=== PATIENT | female | born 1960 | race African-American/Black ===

== ENCOUNTER 2016-09-03 08:55 | Emergency (ER) | payer BC ==
[~2016-09-03] VITALS: Ht 170.2 cm; Wt 68.9 kg
[~2016-09-03 08:55] MED LIST: glipizide; metformin
[2016-09-03] MEDS ORDERED: HYDROmorphone 2 MG/ML VIAL IV/SQ PRN (09:15)
[2016-09-03] MEDS ORDERED: 0.9 % SODIUM CHLORIDE 10 ML DISP.SYRIN. IV PRN (09:15)
[2016-09-03 09:21] LABS: BILIRUBIN,URINE SMALL (NEG); GLUCOSE,URINE 500 mg/dL (NEG); NITRITE,URINE NEGATIVE (NEG); PROTEIN,URINE 100 mg/dL (NEG-TRACE)
[2016-09-03 09:29] LABS: BASO % 1 % (0-3); EOS % 10 % (0-3); HEMATOCRIT 40.4 % (36.0-47.0); HEMOGLOBIN 13.7 g/dL (12.0-15.5); LYMPH # 1.8 x10^3/uL (1.0-4.8); LYMPH % 32 % (24-48); MEAN CORPUSCULAR HEMOGLOBIN 30 pg (25-35); MEAN CORPUSCULAR HGB CONC 34 g/dL (31-37); MEAN CORPUSCULAR VOLUME 90 fL (79-100); MONO % 8 % (0-9); NEUT % 50 % (31-73); PLATELET COUNT 160 x10^3/uL (140-400); RED CELL DISTRIBUTION WIDTH 12.9 % (11.5-14.5); WHITE BLOOD COUNT 5.6 x10^3/uL (4.0-11.0)
[2016-09-03] MEDS ORDERED: IV NORMAL SALINE 1000ML BAG 1,000 ML IV SCH (09:30)
[2016-09-03] MEDS ORDERED: ONDANSETRON PF 4 MG/2 ML VIAL. IV ONE (09:30)
--- NOTE | 2016-09-03 09:32 | PHYS DOC ---
Past Medical History Past Medical History: Diabetes-Type II Past Surgical History: , Other Additional Past Surgical Histo: left foot surgery Additional Information: 04/29 ppd Alcohol Use: None Drug Use: None Adult General Chief Complaint Chief Complaint: BACK PAIN OR INJURY [facility] HPI Patient is a pleasant 56-year-old female with history of diabetes and hypertension who presents with back pain began 2 weeks ago on the left lower back. She describes as achy and dull and in few days ago she began having a burning sensation and development of an intensely itchy rash over the section of back as well. She's noticed some dark urine without difficulty urinating no UTI symptoms of dysuria urgency or frequency. Patient has had abdominal pain that has been radiating to the left lower abdomen area patient denies any trauma. Patient denies any nausea, vomiting, diarrhea, loose stools or change in bowel habits. Patient denies any prior experiences like this before. There is no numbness and tinea between her legs there is no problems with bowel or bladder incontinence, patient denies any night sweats weight loss or surgical history problems. She admits her pain is worse with movements and direct pressure over the lower back. Review of Systems Review of Systems Constitutional: Denies fever or chills but has had diaphoresis with pain Eyes: Denies change in visual acuity, redness, or eye pain [] HENT: Denies nasal congestion or sore throat [] Respiratory: Denies cough or shortness of breath [] Cardiovascular: No additional information not addressed in HPI [] GI: Denies abdominal pain, nausea, vomiting, bloody stools or diarrhea [] : Denies dysuria or hematuria [] Musculoskeletal: Complains of back pain the lower side on the left without radiation to the leg. Integument: Denies rash or skin lesions [] Neurologic: Denies headache, focal weakness or sensory changes [] Psychologic: Patient feels very anxious with pain.] Current Medications Current Medications Current Medications Medications (Trade) Dose Ordered Sig/Lexie Start Time Stop Time Status Last Admin Dose Admin Hydromorphone HCl (Dilaudid) 1 mg PRN Q15MIN PRN 09/03/16 09:15 09/04/16 09:14 Ondansetron HCl (Zofran) 4 mg 1X ONCE 09/03/16 09:30 09/03/16 09:31 Sodium Chloride (Normal Saline Flush) 10 ml QSHIFT PRN 09/03/16 09:15 Allergies Allergies Allergies Coded Allergies Type Severity Reaction Last Updated Verified codeine Adverse Reaction Intermediate Nausea 10/04/15 Yes hydrocodone Adverse Reaction Intermediate Nausea 10/04/15 Yes Physical Exam Physical Exam Constitutional: Well developed, well nourished, patient uncomfortable nondiaphoretic nontoxic HENT: Normocephalic, atraumatic Eyes: PERRLA, EOMI, conjunctiva normal Neck: Normal range of motion, no tenderness, supple, no stridor. [] Cardiovascular:Heart rate regular rhythm, no murmur [] Lungs & Thorax: Bilateral breath sounds clear to auscultation [] Abdomen: Bowel sounds normal, soft, no tenderness, no masses, no pulsatile masses. [] Skin: Dermatomal rash with vesicles noted over the L1 L2 distribution the left lateral lumbar spine. Patient has no midline tenderness palpation Back: No tenderness, no CVA tenderness. [] Extremities: No tenderness, no cyanosis, no clubbing, ROM intact, no edema. [] Neurologic: Alert and oriented X 3, normal motor function, normal sensory function, no focal deficits noted. No sensation normal strength and DTRs at the knee and ankle. She has full range of motion at the hip knee and ankle. Patient has normal proprioception and gait. Psychologic: Affect normal, judgement normal, mood normal. [] Current Patient Data Vital Signs Vital Signs Date Time Temp Pulse Resp B/P (MAP) Pulse Ox O2 Delivery O2 Flow Rate FiO2 09/03/16 09:05 98.4 88 18 195/98 (130) 98 Room Air 98.4 EKG EKG EKG time 9:19 AM 09/03/[address] Monet demonstrates heart rate normal sinus rhythm 87 movement artifact is noted on the EKG but has no obvious ST segment T-wave changes consistent with acute coronary ischemia versus her event NM interval is normal QRS intervals normal QT is normal. [] Radiology/Procedures Radiology/Procedures [] Course & Med Decision Making Course & Med Decision Making Pertinent Labs and Imaging studies reviewed. (See chart for details) Reviewed nurse's notes and vital signs is noted patient's hypertensive on arrival. Gree with the nurse's notes. Patient presents with back pain and hematuria as well as a rash over her lumbar spine which is indicative of shingles. My concern is given hematuria and abdominal pain that began 2 weeks prior to back pain is at the patient is suffering from either kidney stone or infection radiating from her bladder to her kidneys. Differential diagnosis includes cauda equina, renal cell carcinoma or cancer, AAA, fracture, tumor, miliary TB, infection UTI, pyelonephritis or localized epidural abscess patient will have appropriate CT scan of abdomen and pelvis complete as well as urinalysis given fluids pain meds and reevaluation. [] Dragon Disclaimer Dragon Disclaimer This electronic medical record was generated, in whole or in part, using a voice recognition dictation system. Departure Departure Referrals: NO PCP (PCP) DINO LOPEZ MD September 03, 2016 09:32
[2016-09-03 09:35] LABS: BACTERIA,URINE FEW /HPF (0-FEW); RBC,URINE OCC /HPF (0-2); SQUAMOUS EPITHELIAL CELL,UR FEW /LPF; WBC,URINE OCC /HPF (0-4); YEAST,URINE PRESENT /HPF
[2016-09-03 09:49] LABS: CALCIUM 9.6 mg/dL (8.5-10.1); CREATININE 0.7 mg/dL (0.6-1.0); GFR 105.5; POTASSIUM 4.2 mmol/L (3.5-5.1)
[2016-09-03 09:55] LABS: ALBUMIN 3.2 g/dL (3.4-5.0); ALBUMIN/GLOBULIN RATIO 0.7 (1.0-1.7); TOTAL BILIRUBIN 0.5 mg/dL (0.2-1.0); TOTAL PROTEIN 7.6 g/dL (6.4-8.2)
--- NOTE | 2016-09-03 10:05 | EKG ---
[facility] [address] [place] [address] Test Date: 2016-09-03 Test Time: 09:19:39 Pat Name: LAMIN REYES Department: Room: Gender: F Community Engagement Coordinator: : 1960 Requested By: DINO LOPEZ Order Number: [id number] Reading MD: Kane Glasgow Measurements Intervals Stephenson Rate: 87 P: 39 LA: 134 QRS: -12 QRSD: 84 T: 42 QT: 362 QTc: 436 Interpretive Statements SINUS RHYTHM CANNOT RULE OUT SEPTAL INFARCT Electronically Signed On 09-09-2016 9:05:48 CDT by Kane Glasgow
--- NOTE | 2016-09-03 10:53 | RAD ---
Exam performed: CT scan of the abdomen and pelvis without contrast. Clinical Indication: Left lower quadrant pain for 2 weeks. Date of Service: 09/03/16 . Comparison: None available Technique: Contiguous helical acquisitions are obtained through the abdomen and pelvis without IV contrast. Sagittal and coronal reformatted images are obtained and reviewed. CT abdomen and pelvis findings: The lung bases are essentially clear. Right basilar atelectasis. Visualized heart is normal. Lack of IV contrast limits evaluation of abdominal viscera, however the liver, spleen and pancreas are normal. Cholelithiasis. Both adrenal glands and bilateral kidneys are normal in size without hydronephrosis or nephrolithiasis. No perinephric stranding is seen. Aorta is normal in caliber demonstrating atheromatous calcification without aneurysm. The small and large bowel loops are nondilated and unremarkable. The appendix is not seen. No inflammatory changes seen in the right lower quadrant. Distal ureters are nondilated. Urinary bladder is decompressed and thick walled. There is scattered stool throughout the colon. [Uterus is anteverted. No adnexal masses seen. Numerous phleboliths are seen in the pelvis, which could easily obscure a small posterior. Calculus.] No free or focal fluid collections are identified. Impression: 1. No acute intra-abdominal or pelvic process detected. No evidence of urolithiasis. 2. No convincing evidence of urolithiasis seen. 3. Scattered stool throughout the colon. Correlate clinically for constipation. PQRS Compliance Statement: One or more of the following individualized dose reduction techniques were utilized for this examination: 1. Automated exposure control 2. Adjustment of the mA and/or kV according to patient size 3. Use of iterative reconstruction technique
[2016-09-03 11:00] VITALS: BP 146/75
[2016-09-03] MEDS ORDERED: PRED50TA PO (11:17)
[2016-09-03] MEDS ORDERED: OXYC-323 PO (11:17)
[2016-09-03] MEDS ORDERED: ONDA4TAB10 SL (11:17)
[2016-09-03] MEDS ORDERED: ACYC800T PO (11:17)
[2016-09-03] MEDS ORDERED: CIPR500T94 PO (11:24)
== END 2016-09-03 11:38 | disposition home or self-care (01) ==
LOC: ER 08:55
DX: B02.9 Zoster without complications (principal); I10 Essential (primary) hypertension; N39.0 Urinary tract infection, site not specified; M54.5 Low back pain; E11.9 Type 2 diabetes mellitus without complications; F17.200 Nicotine dependence, unspecified, uncomplicated; Z88.5 Allergy status to narcotic agent
CPT/HCPCS: 36415; 74176; 80053; 81001; 83690; 84484; 85027; 93005; 96361; 96374; 96375; 99285; J1170; J2405; J7030

== ENCOUNTER 2017-02-18 00:12 | Emergency (ER) | payer BC ==
[~2017-02-18] VITALS: Ht 170.2 cm; Wt 65.8 kg
[~2017-02-18 00:12] MED LIST changes: +ACYC800T PO; +CIPR500T94 PO; +ONDA4TAB10 SL; +OXYC-323 PO; +PRED50TA PO
[2017-02-18 00:41] VITALS: BP 165/81
--- NOTE | 2017-02-18 00:52 | PHYS DOC ---
Past Medical History Past Medical History: Diabetes-Type II Past Surgical History: , Other Additional Past Surgical Histo: left foot surgery Additional Information: 1/2 PACK/DAY Alcohol Use: None Drug Use: None Adult General Chief Complaint Chief Complaint: FOOT INJURY PAIN HPI HPI Patient is a 56 year old female with hx of DMII who presents with left hip and left foot pain that begun yesterday after she slipped on concrete and fell walking her dog. Patient denies any LOC. Review of Systems Review of Systems Constitutional: Denies fever or chills [] GI: Denies abdominal pain, nausea, vomiting, bloody stools or diarrhea [] : Denies dysuria or hematuria [] Musculoskeletal: left hip and left foot pain Integument: Denies rash or skin lesions [] Neurologic: Denies headache, focal weakness or sensory changes [] Allergies Allergies Allergies Coded Allergies Type Severity Reaction Last Updated Verified codeine Adverse Reaction Intermediate Nausea 10/04/15 Yes hydrocodone Adverse Reaction Intermediate Nausea 10/04/15 Yes Physical Exam Physical Exam Constitutional: Well developed, well nourished, no acute distress, non-toxic appearance. [] Skin: Warm, dry, no erythema, no rash. [] Back: No tenderness, no CVA tenderness. [] Extremities: No obvious deformity noted on the left lower extremity. Tenderness on palpation of the left lateral hip and the top of the left foot. No navicular bone tenderness or tenderness on the base of the fifth metatarsal of the left foot. Full range of motion to the left lower extremity. +2 left pedal pulse. Cap refill less than 2 seconds the left lower extremity. Sensation intact left lower extremity. Neurologic: Alert and oriented X 3, normal motor function, normal sensory function, no focal deficits noted. [] Psychologic: Affect normal, judgement normal, mood normal. [] Current Patient Data Vital Signs Vital Signs Date Time Temp Pulse Resp B/P (MAP) Pulse Ox O2 Delivery O2 Flow Rate FiO2 02/18/17 00:41 98.1 81 18 96 Room Air 98.1 EKG EKG [] Radiology/Procedures Radiology/Procedures [] Course & Med Decision Making Course & Med Decision Making Pertinent Labs and Imaging studies reviewed. (See chart for details) Patient is in the ED with complaints of left foot pain as well as left hip pain after falling yesterday. Left foot and left hip x-rays including pelvic interpreted by Dr. Willis and negative for any acute findings. Ice elevation encouraged. Discharged with cyclobenzaprine and diclofenac. Follow-up with PCP in 1-2 weeks. Korin Disclaimer Korin Disclaimer This electronic medical record was generated, in whole or in part, using a voice recognition dictation system. Departure Departure Impression: Primary Impression: Fall Additional Impressions: Contusion of left hip Sprain of left foot Disposition: HOME, SELF-CARE Condition: STABLE Referrals: ALBARO HUSSEIN (PCP) TRISHA CORTÉS MD follow up in one week Patient Instructions: Contusion, [id number], Fall Prevention and Home Safety , Joint Sprain Additional Instructions: You were seen for contusion of the left hip and left foot sprain. Ice and elevate the affected extremities. Follow-up with the provided doctor is or your own doctor in one week. Take the prescribed medicines as needed for pain. Scripts Diclofenac Potassium (DICLOFENAC POTASSIUM) 50 Mg Tablet 1 TAB PO PRN TID Y for PAIN, #20 TAB Prov: SIMONA VICTORIA APRN 02/18/17 Cyclobenzaprine Hcl (CYCLOBENZAPRINE HCL) 10 Mg Tablet 1 TAB PO TID, #30 TAB Prov: SIMONA VICTORIA CORPORATE COMMUNICATIONS MANAGER 02/18/17 Problem Qualifiers Primary Impression: Fall Encounter type: initial encounter Qualified Codes: W19.XXXA - Unspecified fall, initial encounter Additional Impressions: Contusion of left hip Encounter type: initial encounter Qualified Codes: S70.02XA - Contusion of left hip, initial encounter Sprain of left foot Encounter type: initial encounter Qualified Codes: S93.602A - Unspecified sprain of left foot, initial encounter SIMONA VICTORIA APRN Feb 18, 2017 00:52
[2017-02-18] MEDS ORDERED: DICL50TA2 PO (01:07)
[2017-02-18] MEDS ORDERED: CYCL10TA2 PO (01:07)
[2017-02-18] MEDS ORDERED: CYCLOBENZAPRINE 10 MG TABLET. PO ONE (01:15)
--- NOTE | 2017-02-18 07:31 | RAD ---
Left foot, 3 views, 02/18/2017: History: Fall, pain No fracture or dislocation is identified. There is mild subcutaneous edema. IMPRESSION: No acute bony abnormality is detected. Pelvis with left hip, 3 views, 02/18/2017: No fracture or dislocation is identified. The hip joints are well-maintained. There is mild degenerative change at the symphysis pubis.
== END 2017-02-18 01:13 | disposition home or self-care (01) ==
LOC: ER 00:12
DX: S93.602A Unspecified sprain of left foot, initial encounter (principal); S70.02XA Contusion of left hip, initial encounter; E11.9 Type 2 diabetes mellitus without complications; F17.200 Nicotine dependence, unspecified, uncomplicated; Z88.5 Allergy status to narcotic agent; W01.0XXA Fall on same level from slipping, tripping and stumbling without subsequent striking against object, initial encounter; Y93.K1 Activity, walking an animal; Y99.8 Other external cause status; Y92.89 Other specified places as the place of occurrence of the external cause
CPT/HCPCS: 73502; 73630; 99284

== ENCOUNTER 2019-03-23 22:56 | Emergency (ER) | payer BC ==
[~2019-03-23] VITALS: Ht 171.4 cm; Wt 65.8 kg
[~2019-03-23 22:56] MED LIST changes: +CYCL10TA2 PO; +DICL50TA2 PO; -OXYC-323 PO; +OXYC1TAB15 PO
[2019-03-24 00:43] LABS: BILIRUBIN,URINE SMALL (NEG); CLARITY,URINE CLEAR; COLOR,URINE AMBER; NITRITE,URINE NEGATIVE (NEG); PH,URINE 5.5; PROTEIN,URINE >=300 mg/dL (NEG-TRACE)
[2019-03-24 00:48] LABS: SQUAMOUS EPITHELIAL CELL,UR MOD /LPF
[2019-03-24 00:49] LABS: AMORPHOUS SEDIMENT,UR PRESENT /HPF; BACTERIA,URINE 0 /HPF (0-FEW); HYALINE CASTS, URINE MODERATE /HPF; YEAST,URINE PRESENT /HPF
--- NOTE | 2019-03-24 00:58 | PHYS DOC ---
Past Medical History Past Medical History: Diabetes-Type II, Other Additional Past Medical Histor: NEUROPATHY Past Surgical History: Additional Past Surgical Histo: left foot surgery Additional Information: 2PPD Alcohol Use: None Drug Use: Marijuana Adult General Chief Complaint Chief Complaint: EARACHE/EAR PAIN [facility] HPI 59-year-old female with history of diabetes presents to the emergency department with complaints of bilateral ear pain, left greater than right, nausea, she denies any fever, chest pain, shortness of breath. Patient states the pain initially started on Friday however is progressively gotten worse. She denies any sick contacts. Nothing make her symptoms worse, nothing makes her symptoms better. She does described headache which has bee intermittent throughout the week. All other ROS negative unless documented in HPI Review of Systems Review of Systems See Above Current Medications Current Medications Current Medications Medications (Trade) Dose Ordered Sig/Lexie Start Time Stop Time Status Last Admin Dose Admin Ketorolac Tromethamine (Toradol Im) 60 mg 1X ONCE 03/24/19 01:00 03/24/19 01:01 DC 03/24/19 00:39 60 MG Ondansetron HCl (Zofran Odt) 4 mg 1X ONCE 03/24/19 01:00 03/24/19 01:01 DC 03/24/19 00:39 4 MG Allergies Allergies Allergies Coded Allergies Type Severity Reaction Last Updated Verified codeine Adverse Reaction Intermediate Nausea 10/04/15 Yes hydrocodone Adverse Reaction Intermediate Nausea 10/04/15 Yes Physical Exam Physical Exam See Above Constitutional: Well developed, well nourished, no acute distress, non-toxic appearance. [] HENT: Normocephalic, atraumatic, bilateral external ears examined left with fluid appreciated, oropharynx moist, no oral exudates, nose normal. [] Eyes: PERRLA, EOMI, conjunctiva normal, no discharge. [] Cardiovascular:Heart rate regular rhythm, no murmur [] Lungs & Thorax: Bilateral breath sounds clear to auscultation [] Abdomen: Bowel sounds normal, soft, no tenderness, no masses, no pulsatile masses. [] Skin: Warm, dry, no erythema, no rash. [] Extremities: No tenderness, no edema. [] Neurologic: Alert and oriented X 3, no focal deficits noted. Normal finger to nose examination, No evidence of ataxia appreciated [] Psychologic: Affect normal, judgement normal, mood normal. [] Current Patient Data Vital Signs Vital Signs Date Time Temp Pulse Resp B/P (MAP) Pulse Ox O2 Delivery O2 Flow Rate FiO2 03/23/19 23:30 97.8 75 16 189/93 (125) 99 Room Air 97.8 Lab Values Laboratory Tests Test 03/23/19 23:30 Urine Collection Type Unknown Urine Color Radha Urine Clarity Clear Urine pH 5.5 Urine Specific Weldon >=1.030 Urine Protein >=300 mg/dL (NEG-TRACE) Urine Glucose (UA) Negative mg/dL (NEG) Urine Ketones (Stick) Trace mg/dL (NEG) Urine Blood Negative (NEG) Urine Nitrite Negative (NEG) Urine Bilirubin Small (NEG) Urine Urobilinogen Dipstick 1.0 mg/dL (0.2 mg/dL) Urine Leukocyte Esterase Negative (NEG) Urine RBC 1-2 /HPF (0-2) Urine WBC 1-4 /HPF (0-4) Urine Squamous Epithelial Cells Mod /LPF Urine Amorphous Sediment Present /HPF Urine Bacteria 0 /HPF (0-FEW) Urine Hyaline Casts Moderate /HPF Urine Mucus Marked /LPF Urine Yeast Present /HPF EKG EKG [] Radiology/Procedures Radiology/Procedures [] Course & Med Decision Making Course & Med Decision Making Pertinent Labs and Imaging studies reviewed. (See chart for details) []59-year-old female with history of diabetes presents to the emergency department with complaints of bilateral ear pain, left greater than right, nausea, she denies any fever, chest pain, shortness of breath. Patient states the pain initially started on Friday however is progressively gotten worse. She denies any sick contacts. Nothing make her symptoms worse, nothing makes her symptoms better. UAD without acute findings Toradol IM, Zofran ODT Recommend dc home with abx for sinusitis and nasonex Recommend follow up with PCP in 3 - 5 days Dragon Disclaimer Dragon Disclaimer This electronic medical record was generated, in whole or in part, using a voice recognition dictation system. Departure Departure Impression: Primary Impression: Ear pain Additional Impression: Sinus congestion Disposition: HOME, SELF-CARE Condition: IMPROVED Referrals: ALBARO HUSSEIN (PCP) Patient Instructions: Sinus Headache, [id number], Sinusitis, [id number] Additional Instructions: Recommend follow up with PCP 3 - 5 days Return to the ER with worsening symptoms, intractable pain, fever, altered mental status Tylenol/Motrin as needed for pain Take antibiotics as directed Doxycycline 100mg po BID x 10days Zofran as needed for nausea Encourage fluids Scripts Ondansetron Hcl (ZOFRAN) 4 Mg Tablet 1 TAB PO PRN Q6-8HRS for nausea, #12 TAB Prov: MARIAN MAGANA MD 03/24/19 Doxycycline Hyclate (DOXYCYCLINE HYCLATE) 100 Mg Capsule 1 CAP PO BID for 10 Days, #20 CAP Prov: MARIAN MAGANA MD 03/24/19 Problem Qualifiers Primary Impression: Ear pain Laterality: bilateral Qualified Codes: H92.03 - Otalgia, bilateral MARIAN MAGANA MD Mar 24, 2019 00:58
[2019-03-24] MEDS ORDERED: ONDANSETRON ODT 4 MG TAB.RAPDIS. PO ONE (01:00)
[2019-03-24] MEDS ORDERED: KETOROLAC 60 MG/2 ML VIAL. IM ONE (01:00)
[2019-03-24] MEDS ORDERED: DOXY100C2 PO (01:37)
[2019-03-24] MEDS ORDERED: ONDA4TAB7 PO (01:37)
[2019-03-24] MEDS ORDERED: MOME17SP NS (01:39)
[2019-03-24 01:42] VITALS: BP 196/93
== END 2019-03-24 01:45 | disposition home or self-care (01) ==
LOC: ER 22:56
DX: H92.03 Otalgia, bilateral (principal); R09.81 Nasal congestion; F12.90 Cannabis use, unspecified, uncomplicated; E11.40 Type 2 diabetes mellitus with diabetic neuropathy, unspecified; Z88.5 Allergy status to narcotic agent; Z88.6 Allergy status to analgesic agent; Z98.890 Other specified postprocedural states
CPT/HCPCS: 81001; 96372; 99283; J1885; Q0162

== ENCOUNTER 2020-06-08 16:56 | Emergency (ER) | payer BC ==
[~2020-06-08] VITALS: Ht 170.2 cm; Wt 65.9 kg
[~2020-06-08 16:56] MED LIST changes: +DOXY100C2 PO; +MOME17SP NS; +ONDA4TAB7 PO
[2020-06-08] MEDS ORDERED: IBUPROFEN 400 MG TABLET. PO ONE (20:00)
[2020-06-08] MEDS ORDERED: ACETAMINOPHEN 500 MG TABLET PO ONE (20:00)
[2020-06-08 20:19] LABS: BILIRUBIN,URINE NEGATIVE (NEG); CLARITY,URINE CLEAR; COLOR,URINE YELLOW; NITRITE,URINE NEGATIVE (NEG); PROTEIN,URINE >=300 mg/dL (NEG-TRACE)
[2020-06-08 20:44] LABS: BACTERIA,URINE 0 /HPF (0-FEW); RBC,URINE RARE /HPF (0-2); WBC,URINE RARE /HPF (0-4)
[2020-06-08 20:45] LABS: YEAST,URINE PRESENT /HPF
--- NOTE | 2020-06-08 20:53 | PHYS DOC ---
Past Medical History Past Medical History: Diabetes-Type II, Other Additional Past Medical Histor: NEUROPATHY Past Surgical History: Additional Past Surgical Histo: left foot surgery Smoking Status: Current Every Day Smoker Alcohol Use: None Drug Use: Marijuana Adult General Chief Complaint Chief Complaint: BACK PAIN - NO INJURY HPI HPI Patient is a 60 year old female with no significant past medical history now presenting the emergency department complaining of new onset of right lower back pain. Patient states over the last week she has been having worsening sensation of right lower back pain which starts in the right lower back radiates into the right hip and down the right leg. Patient states that she also noted a small mass in the right back which is also been painful and tender. 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 Denies any specific injury or pulling sensation and feels that this occurred as she woke up from sleep. Denies any nausea, vomit, fever, chills, dysuria, hematuria or pyuria Review of Systems Review of Systems Constitutional: Denies fever or chills [] Eyes: Denies change in visual acuity, redness, or eye pain [] HENT: Denies nasal congestion or sore throat [] Respiratory: Denies cough or shortness of breath [] Cardiovascular: No additional information not addressed in HPI [] GI: Denies abdominal pain, nausea, vomiting, bloody stools or diarrhea [] : Denies dysuria or hematuria [] Musculoskeletal: Denies back pain or joint pain [] Integument: Denies rash or skin lesions [] Neurologic: Denies headache, focal weakness or sensory changes [] Endocrine: Denies polyuria or polydipsia [] All other systems were reviewed and found to be within normal limits, except as documented in this note. Current Medications Current Medications Current Medications Medications (Trade) Dose Ordered Sig/Lexie Start Time Stop Time Status Last Admin Dose Admin Acetaminophen (Tylenol) 1,000 mg 1X ONCE 06/08/20 20:00 06/08/20 20:01 DC 06/09/20 00:02 1,000 MG Amlodipine Besylate (Norvasc) 5 mg 1X ONCE 06/09/20 01:00 06/09/20 01:01 DC 06/09/20 01:03 5 MG Ibuprofen (Motrin) 800 mg 1X ONCE 06/08/20 20:00 06/08/20 20:01 DC 06/09/20 00:02 800 MG Info (CONTRAST GIVEN -- Rx MONITORING) 1 each PRN DAILY PRN 06/08/20 22:00 06/10/20 21:59 Iohexol (Omnipaque 300 Mg/ml) 75 ml 1X ONCE 06/08/20 22:00 06/08/20 22:01 DC 06/08/20 23:00 60 ML Lidocaine (Lidoderm) 1 patch 1X ONCE 06/09/20 01:00 06/09/20 01:01 DC 06/09/20 01:03 1 PATCH Allergies Allergies Allergies Coded Allergies Type Severity Reaction Last Updated Verified codeine Adverse Reaction Intermediate Nausea 10/04/15 Yes hydrocodone Adverse Reaction Intermediate Nausea 10/04/15 Yes Physical Exam Physical Exam Constitutional: Well developed, well nourished, no acute distress, non-toxic appearance. [] HENT: Normocephalic, atraumatic, bilateral external ears normal, oropharynx mois t, no oral exudates, nose normal. [] Eyes: PERRLA, EOMI, conjunctiva normal, no discharge. [] Neck: Normal range of motion, no tenderness, supple, no stridor. [] Cardiovascular:Heart rate regular rhythm, no murmur [] Lungs & Thorax: Bilateral breath sounds clear to auscultation [] Abdomen: Bowel sounds normal, soft, no tenderness, no masses, no pulsatile masses. [] Skin: Warm, dry, no erythema, no rash. [] Back: Moderate right paraspinal tenderness with 2 moderate rubbery well- circumscribed lesions in the right paraspinal area and movable over the midline, no CVA tenderness. [] Extremities: No tenderness, no cyanosis, no clubbing, ROM intact, no edema. [] Neurologic: Alert and oriented X 3, normal motor function, normal sensory function, no focal deficits noted. [] Psychologic: Affect normal, judgement normal, mood normal. [] Current Patient Data Vital Signs Vital Signs Date Time Temp Pulse Resp B/P (MAP) Pulse Ox O2 Delivery O2 Flow Rate FiO2 06/09/20 01:03 69 234/109 06/08/20 17:20 98.9 18 99 Room Air 98.9 Lab Values Laboratory Tests Test 06/08/20 20:10 06/08/20 22:06/09/20 00:27 Urine Collection Type Unknown Urine Color Yellow Urine Clarity Clear Urine pH 6.0 (<5.0-8.0) Urine Specific [place] 1.020 (1.000-1.030) Urine Protein >=300 mg/dL (NEG-TRACE) Urine Glucose (UA) Negative mg/dL (NEG) Urine Ketones (Stick) Negative mg/dL (NEG) Urine Blood Negative (NEG) Urine Nitrite Negative (NEG) Urine Bilirubin Negative (NEG) Urine Urobilinogen Dipstick 1.0 mg/dL (0.2 mg/dL) Urine Leukocyte Esterase Negative (NEG) Urine RBC Rare /HPF (0-2) Urine WBC Rare /HPF (0-4) Urine Squamous Epithelial Cells Occ /LPF Urine Bacteria 0 /HPF (0-FEW) Urine Yeast Present /HPF White Blood Count 6.7 x10^3/uL (4.0-11.0) Red Blood Count 4.50 x10^6/uL (3.50-5.40) Hemoglobin 13.9 g/dL (12.0-15.5) Hematocrit 42.1 % (36.0-47.0) Mean Corpuscular Volume 94 fL (79-100) Mean Corpuscular Hemoglobin 31 pg (25-35) Mean Corpuscular Hemoglobin Concent 33 g/dL (31-37) Red Cell Distribution Width 13.6 % (11.5-14.5) Platelet Count 179 x10^3/uL (140-400) Neutrophils (%) (Auto) 33 % (31-73) Lymphocytes (%) (Auto) 52 % (24-48) H Monocytes (%) (Auto) 8 % (0-9) Eosinophils (%) (Auto) 7 % (0-3) H Basophils (%) (Auto) 1 % (0-3) Neutrophils # (Auto) 2.2 x10^3/uL (1.8-7.7) Lymphocytes # (Auto) 3.5 x10^3/uL (1.0-4.8) Monocytes # (Auto) 0.5 x10^3/uL (0.0-1.1) Eosinophils # (Auto) 0.4 x10^3/uL (0.0-0.7) Basophils # (Auto) 0.1 x10^3/uL (0.0-0.2) Sodium Level 141 mmol/L (136-145) Potassium Level 4.4 mmol/L (3.5-5.1) Chloride Level 107 mmol/L (98-107) Carbon Dioxide Level 24 mmol/L (21-32) Anion Gap 10 (6-14) Blood Urea Nitrogen 20 mg/dL (7-20) Creatinine 1.2 mg/dL (0.6-1.0) H Estimated GFR (Cockcroft-Gault) 55.8 Glucose Level 120 mg/dL (70-99) H Calcium Level 9.3 mg/dL (8.5-10.1) Troponin I Quantitative < 0.017 ng/mL (0.000-0.055) C-Reactive Protein, Quantitative < 0.5 mg/L (0-3.3) D-Dimer (Eliana) 0.46 ug/mlFEU (0.00-0.50) Laboratory Tests 06/08/20 22:20 Laboratory Tests 06/08/20 22:20 EKG EKG [] Radiology/Procedures Radiology/Procedures [] Course & Med Decision Making Course & Med Decision Making Pertinent Labs and Imaging studies reviewed. (See chart for details) 60F with noted right lower back pain however on exam patient is noted to have 2 separate masses there which is raise concern for carcinoma or other significant lesion. Because of this I feel that is necessary to obtain a CT scan of the lumbar spine with and without contrast to make sure there is no evidence of abscess, malignant fracture or other significant herniation or infection 0108 -patient's initial work-up and CT scan were negative for any significant findings other than enlarged lymph nodes. However after the patient's arrival she was noted to have a extreme hypertension up to 230/120. Patient states that she is aware this and has been uncontrolled. I did obtain a D-dimer and a troponin to make sure there is no other significant comorbidity associated with this. This are negative I did treat the patient's hypertension. I counseled the patient extensively on the importance of proper control of her high blood pressure. At this time I feel the patient can be safely discharged home Dragon Disclaimer Dragon Disclaimer This electronic medical record was generated, in whole or in part, using a voice recognition dictation system. Departure Departure Impression: Primary Impression: Back pain Disposition: 01 DC HOME SELF CARE/HOMELESS Condition: GOOD Referrals: BASSEM JUAREZ MD (PCP) Patient Instructions: Back Pain, Adult Additional Instructions: EMERGENCY DEPARTMENT GENERAL DISCHARGE INSTRUCTIONS Thank you for coming to [facility] Emergency Department (ED) today and trusting us with you care. We trust that you had a positive experience in our Emergency Department. If you wish to speak to the department management, you may call the Director at [phone]. YOUR FOLLOW UP INSTRUCTIONS ARE FOLLOWS: 1. Do you have a private Doctor? If you do not have a private doctor, please ask for a resource list of physicians or clinics that may be able to assist you with follow up care. 2. The Emergency Physicain has interpreted your x-rays. The X-Ray specialist will also review them. If there is a change in the findings, you will be notified in 48 hours when at all possible. 3. A lab test or culture has been done, your results will be reviewed and you will be notified if you need a change in treatment. ADDITIONAL INSTRUCTIONS AND INFORMATION: 1. Your care today has been supervised by a physician who is specially trained in emergency care. Many problems require more than one evaluation for a complete diagnosis and treatment. We recommend that you schedule your follow up appointment as recommended to ensure complete treatment of you illness or injury. If you are unable to obtain follow up care and continue to have a problem, or if your condition worsens, we recommend that you return to the ED. 2. We are not able to safely determine your condition over the phone nor are we able to give sound medical advice over the phone. For these safety reasons, if you call for medical advice we will ask you to come to the ED for further evaluation. 3. If you have any questions regarding these discharge instructions please call the ED at [phone]. SAFETY INFORMATION: In the interest of safety, wellness, and injury prevention; we encourage you to wear your sealbelt, if you smoke; quite smoking, and we encourage family to use a protective helmet for bicycling and other sporting events that present an increased risk for head injury. IF YOUR SYMPTOMS WORSEN OR NEW SYMPTOMS DEVELOP, OR YOU HAVE CONCERNS ABOUT YOUR CONDITION; OR IF YOUR CONDITION WORSENS WHILE YOU ARE WAITING FOR YOUR FOLLOW UP APPOINTMENT; EITHER CONTACT YOUR PRIMARY CARE DOCTOR, THE PHYSICIAN WHOSE NAME AND NUMBER YOU WERE GIVEN, OR RETURN TO THE ED IMMEDIATELY. Scripts Naproxen (NAPROSYN) 500 Mg Tablet 1 TAB PO BID for pain for 30 Days, #60 TAB 0 Refills Prov: OSITO CHILD MD 06/09/20 Cyclobenzaprine Hcl (CYCLOBENZAPRINE HCL) 10 Mg Tablet 1 TAB PO TID for pain, #90 TAB Prov: OSITO CHILD MD 06/09/20 OSITO CHILD MD Jun 08, 2020 20:53
[2020-06-08] MEDS ORDERED: CONTRAST GIVEN. MC PRN (22:00)
[2020-06-08] MEDS ORDERED: IOHEXOL 300 MG/ML 100ML VIAL. IV ONE (22:00)
[2020-06-08 22:36] LABS: BASO # 0.1 x10^3/uL (0.0-0.2); BASO % 1 % (0-3); EOS # 0.4 x10^3/uL (0.0-0.7); EOS % 7 % (0-3); HEMATOCRIT 42.1 % (36.0-47.0); HEMOGLOBIN 13.9 g/dL (12.0-15.5); LYMPH # 3.5 x10^3/uL (1.0-4.8); LYMPH % 52 % (24-48); MEAN CORPUSCULAR HEMOGLOBIN 31 pg (25-35); MEAN CORPUSCULAR HGB CONC 33 g/dL (31-37); MEAN CORPUSCULAR VOLUME 94 fL (79-100); MONO # 0.5 x10^3/uL (0.0-1.1); MONO % 8 % (0-9); NEUT # 2.2 x10^3/uL (1.8-7.7); NEUT % 33 % (31-73); PLATELET COUNT 179 x10^3/uL (140-400); RED CELL DISTRIBUTION WIDTH 13.6 % (11.5-14.5); WHITE BLOOD COUNT 6.7 x10^3/uL (4.0-11.0)
[2020-06-08 23:17] LABS: ANION GAP 10 (6-14); BLOOD UREA NITROGEN 20 mg/dL (7-20); CALCIUM 9.3 mg/dL (8.5-10.1); CARBON DIOXIDE 24 mmol/L (21-32); CHLORIDE 107 mmol/L (98-107); CREATININE 1.2 mg/dL (0.6-1.0); GFR 55.8; GLUCOSE 120 mg/dL (70-99); POTASSIUM 4.4 mmol/L (3.5-5.1); SODIUM 141 mmol/L (136-145)
[2020-06-08 23:19] LABS: C-REACTIVE PROTEIN < 0.5 mg/L (0-3.3)
--- NOTE | 2020-06-08 23:58 | RAD ---
PQRS Compliance Statement: One or more of the following individualized dose reduction techniques were utilized for this examinat ion: 1. Automated exposure control 2. Adjustment of the mA and/or kV according to patient size 3. Use of iterative reconstruction technique CT LUMBAR SPINE WITHOUT AND WITH IV CONTRAST 06/08/2020 11:25 PM Indication: Right paraspinal mass COMPARISON: None available TECHNIQUE: Multiple axial CT images of the lumbar spine were obtained before and after the administra tion of intravenous contrast. Coronal and sagittal reformats are provided. FINDINGS: Alignment of the lumbar spine is normal. Vertebral body heights are maintained. No acute fractures id entified. Conus medullaris terminates at the L2 vertebral level. Disc heights are maintained. Lung ba ses are clear. Heart size within normal limits. Fusiform thickening of the adrenal glands may reflect adenomatous hyperplasia. The kidneys enhance symmetrically. There is no suspicious renal mass. There is no hydronephrosis. There are no suspected calculi within the kidneys, ureters or urinary bladder. Cholelithiasis. Small fat-containing right inguinal hernia. Urinary bladder is within normal limits in degree of distention. Uterus and adnexa are normal by CT. Small large bowel are normal in caliber. No bowel obstruction or inflammation. There is suggestion of a right retrocrural soft tissue nodule measuring 10 mm short axis (series 2, image 13). No pathologically enlarged retroperitoneal lymphaden opathy. 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 L3-L4: Mild disc bulge. Mild facet arthropathy with ligamentum flavum infolding. Mild bilateral neuro foraminal stenosis. Mild spinal canal stenosis. L4-L5: Mild disc bulge. Mild facet arthropathy. Mild bilateral neuroforaminal stenosis. Mild spinal c anal stenosis. L5-S1: Mild disc bulge. Moderate facet arthropathy. Mild bilateral neuroforaminal stenosis. No spinal canal stenosis. IMPRESSION: No acute fracture or malalignment of the lumbar spine. Mild lumbar spondylosis. 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 Cholelithiasis. Borderline right retrocrural lymph node measuring 10 mm by short axis. Electronically signed by: Zonia Estrada MD (06/08/2020 11:56 PM) [facility]
[2020-06-09] MEDS ORDERED: LIDOCAINE (700MG/PATCH) PATCH. TD ONE (01:00)
[2020-06-09] MEDS ORDERED: amLODIPine BESYLATE 5 MG TABLET PO ONE (01:00)
[2020-06-09 01:05] VITALS: BP 214/132
[2020-06-09] MEDS ORDERED: NAPR-683 PO (01:11)
[2020-06-09] MEDS ORDERED: CYCL10TA2 PO (01:11)
== END 2020-06-09 01:23 | disposition home or self-care (01) ==
LOC: ER 16:56
DX: M54.5 Low back pain (principal); M25.551 Pain in right hip; M79.604 Pain in right leg; E11.40 Type 2 diabetes mellitus with diabetic neuropathy, unspecified; F17.200 Nicotine dependence, unspecified, uncomplicated; Z88.5 Allergy status to narcotic agent
CPT/HCPCS: 36415; 72133; 80048; 81001; 84484; 85025; 85379; 86140; 99285; Q9967